=== PATIENT | male | born 1990 | race Caucasian/White ===

== ENCOUNTER 2017-10-11 13:23 | Emergency (ER) | payer SELFPAY ==
[~2017-10-11] VITALS: Ht 180.3 cm; Wt 65.9 kg
[~2017-10-11 13:23] MED LIST: ALLEGRA 180MG180 MG PO; ALLEGRA60 MG PO; NO HOME MEDICATIONS; WELLBUTRIN 75MG75 MG PO; [UNRECOGNIZED DRUG - OTHER]
[2017-10-11 13:28] VITALS: TEMP 96.9
[2017-10-11 14:01] LABS: BASO % 0.2 % (0.0-2.0); GRAN # 7.4 (1.4-6.5); GRAN % 78.8 % (42.2-75.2); HEMATOCRIT 47.1 % (42.0-52.0); HEMOGLOBIN 16.3 g/dl (13.5-18.0); LYMPH # 1.7 (1.2-3.4); LYMPH % 18.1 % (20.0-51.0); MEAN CELL VOLUME 88 fl (80.0-100.0); MEAN CORPUSCULAR HEMOGLOBIN 30 pg (27.0-31.0); MEAN CORPUSCULAR HGB CONC 35 g/dl (33.0-37.0); MEAN PLATELET VOLUME 8.9 fl (7.4-10.4); MONO # 0.2 (0.1-0.6); MONO % 2.6 % (1.7-9.3); PLATELET COUNT 220 K/mm3 (130-400); RED BLOOD COUNT 5.36 M/mm3 (4.20-5.60); REDCELL DISTRIBUTION WIDTH-CV 12.9 % (11.5-14.5)
[2017-10-11 14:15] LABS: ALANINE AMINOTRANSFERASE 24 U/L (21-72); ALBUMIN 4.7 gm/dL (3.5-5.0); ALKALINE PHOSPHATASE 61 U/L (50-136); ANION GAP 17 mmol/L (7-16); AST,SGOT 21 U/L (15-37); BILIRUBIN,TOTAL 0.7 mg/dL (0.0-1.0); BLOOD UREA NITROGEN 14 mg/dL (9-20); CALCIUM 10.2 mg/dL (8.4-10.2); CARBON DIOXIDE 26 mmol/L (22-30); CHLORIDE 106 mmol/L (98-107); GLUCOSE 129 mg/dL (74-106); LIPASE 29 U/L (23-300); POTASSIUM 3.7 mmol/L (3.4-5.0); SODIUM 149 mmol/L (137-145); TOTAL PROTEIN 9.8 gm/dL (6.4-8.2)
[2017-10-11 14:17] LABS: C-REACTIVE PROTEIN < 0.5 mg/dL (0.0-0.9)
[2017-10-11] MEDS ORDERED: ZOFRAN ODT4 MG PO (14:44)
[2017-10-11 15:51] LABS: COLLECTION METHOD CLEAN CATCH
[2017-10-11 16:03] LABS: MUCOUS Present /lpf; PH 6 (5-8); SQUAMOUS EPITHELIAL 0-2 /hpf; URINE APPEARANCE Hazy; URINE BACTERIA None Seen /hpf; URINE BILIRUBIN Negative (NEGATIVE); URINE BLOOD Negative (NEGATIVE); URINE COLOR Amber; URINE GLUCOSE Negative (NEGATIVE); URINE KETONE 2+ (NEGATIVE); URINE LEUKOCYTE ESTERASE Trace (NEGATIVE); URINE NITRATE Negative (NEGATIVE); URINE PROTEIN(semi-quant) 2+ (NEGATIVE); URINE UROBILINOGEN Negative (NEGATIVE)
[2017-10-11 16:08] LABS: TRICYCLIC ANTIDEPRESS URINE NEGATIVE
[2017-10-11 16:23] VITALS: BP 102/50; PULSE 54
== END 2017-10-11 16:24 | disposition home or self-care (01) ==
LOC: COL.ER 13:23
PROVIDERS: Family Medicine
DX: R11.10 Vomiting, unspecified (principal); E86.9 Volume depletion, unspecified; E86.0 Dehydration
CPT/HCPCS: J2405; J7030; J7120

== ENCOUNTER 2019-09-25 10:12 | Emergency (ER) | payer SELFPAY ==
[~2019-09-25] VITALS: Ht 180.3 cm; Wt 68.2 kg
[~2019-09-25 10:12] MED LIST changes: +ZOFRAN ODT4 MG PO
[2019-09-25 10:20] VITALS: TEMP 97.1
[2019-09-25 10:55] LABS: BASO % 0.3 % (0.0-2.0); EOS % 0.1 % (0-4.0); GRAN # 5.8 (1.4-6.5); GRAN % 75.4 % (42.2-75.2); HEMATOCRIT 48.1 % (42.0-52.0); HEMOGLOBIN 16.2 g/dl (13.5-18.0); LYMPH # 1.6 (1.2-3.4); LYMPH % 20.1 % (20.0-51.0); MEAN CELL VOLUME 90 fl (80.0-100.0); MEAN CORPUSCULAR HEMOGLOBIN 30 pg (27.0-31.0); MEAN CORPUSCULAR HGB CONC 34 g/dl (33.0-37.0); MEAN PLATELET VOLUME 8.9 fl (7.4-10.4); MONO # 0.3 (0.1-0.6); MONO % 3.8 % (1.7-9.3); PLATELET COUNT 206 K/mm3 (130-400); RED BLOOD COUNT 5.34 M/mm3 (4.20-5.60); REDCELL DISTRIBUTION WIDTH-CV 12.3 % (11.5-14.5)
[2019-09-25 11:16] LABS: ALBUMIN 4.9 gm/dL (3.5-5.0); BILIRUBIN,TOTAL 0.8 mg/dL (0.0-1.0); CREATININE, serum 0.73 (0.66-1.25); POTASSIUM 3.7 mmol/L (3.4-5.0); TOTAL PROTEIN 9.1 gm/dL (6.4-8.2)
[2019-09-25] MEDS ORDERED: ZOFRAN ODT4 MG PO (13:51)
[2019-09-25 14:06] VITALS: BP 130/79; PULSE 80
== END 2019-09-25 14:20 | disposition home or self-care (01) ==
LOC: COL.ER 10:12
PROVIDERS: Nurse Practitioner Primary Care
DX: K52.9 Noninfective gastroenteritis and colitis, unspecified (principal); F17.210 Nicotine dependence, cigarettes, uncomplicated
CPT/HCPCS: J0780; J2405; J2550; J7030